=== PATIENT | female | born 2005 | race Caucasian/White ===

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

== ENCOUNTER 2025-02-14 23:00 | Emergency (ER) | payer BC, SELFPAY ==
--- OUTSIDE RECORDS SUMMARY | 2025-02-14 23:02 | XMS_ITS | Clinical Summary ---
Author Organization [facility] Address [address] [place] [address] Care Team Providers Care Switchboard Troubleshooter Name Role Phone No Ref-Primary, Physician Unavailable [phone] No Ref-Primary, Physician Primary Care Provider Allergies No known active allergies Medications No known medications Active Problems No known active problems Social History Tobacco Use Types Packs/Day Years Used Date Smoking Tobacco: Never Smokeless Tobacco: Never Tobacco Cessation:Counseling Given: No PHQ-2 Answer Date Recorded PHQ-2 Score 0 09/19/2018 Comments Unknown Sex and Gender Information Value Date Recorded Sex Assigned at Not on file Legal Sex Female 4:02 PM TRAFFIC CLERK Gender Identity Not on file Sexual Orientation Not on file Last Filed Vital Signs Vital Sign Reading Time Taken Comments Blood Pressure - - Pulse - - Temperature - - Respiratory Rate - - Oxygen Saturation - - Inhaled Oxygen Concentration - - Weight 49.4 kg (109 lb) 10/18/2018 10:12 AM TRAFFIC CLERK Height 171 cm (5' 7.32) 10/18/2018 10:12 AM TRAFFIC CLERK Body Mass Index 16.91 10/18/2018 10:12 AM TRAFFIC CLERK Plan of Treatment Not on file [facility] [place] [facility] Care Teams Switchboard Troubleshooter Relationship Specialty Start Date End Date No Ref-Primary, Physician PCP - General 10/08/18 No Ref-Primary, Physician 10/08/18
--- OUTSIDE RECORDS SUMMARY | 2025-02-14 23:02 | XMS_ITS | Clinical Summary ---
Author Organization [facility] Address [address] [place] [address] Care Team Providers Care Septic Tank Cleaner Name Role Phone Kathe Hagan MD Primary Care Provi robel Allergies Active Allergy Reactions Criticality Noted Date Comments Latex Rash 04/12/2018 Noted with rubber bands with her braces Nickel Rash 04/12/2018 Raspberry Other - Describe In Comment Field 06/03/2014 Tongue was tingling Medications cetirizine (ZyrTEC) 10 mg tablet Take 1 Tablet (10 mg) by mouth once daily. 0 04/13/2022 Active albuterol HFA (PRO-AIR; VENTOLIN; PROVENTIL) 90 mcg/actuation inhalerIndicatio ns:Wheeze Inhale 2 Puffs by mouth every 4 hours if needed 1 Each 1 05/30/2022 Active drospirenone, contraceptive, 4 mg (28) tabIndications:I rregular menses Take 4 mg by mouth once daily. 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 Patellofemoral pain syndrome 03/11/2015 Encounters Date Type Department Care Team Description 01/16/2025 Telephone [facility] [address] [place] [address] Marnie Fierro MD Letter from Last 3 Months Immunizations Immunization Administration Dates Next Due AMB Influenza, IIV4 PF (=>6 mos Flulaval,Fluzone Fluarix)(Flu Clinic Only) 06/22/2017 COVID-19 vaccine (YumDots NTech 30mcg/0.3mL) PF, MDV 01/08/2021,12/18/2020 DTaP 06/04/2008,08/31/2005 IPrA-ZrqE-MJY (Pediarix) 2004,2004,1 10/02/2003 HIB PRP-OMP (PedvaxHIB) 08/31/2005,2004, Hepatitis A (Peds) 07/02/2007,06/09/2006 Inactivated Polio Vaccine 06/05/2009 Influenza A (H1N1), Inactiva mykel (Age >=3 Years) 08/21/2009,07/22/2009 Influenza, IIV3 (Age 6-35 mos) 06/09/2006 Influenza, IIV3 (Age >=3 years) 06/05/20 09,06/04/2008,06/05/2007,08/18,07/19/2005 Influenza, IIV4 09/06/2023,,06/08/2021,06/01,06/07/2019,06/22/2018,06/10/2016 ,06/03/2014 Influenza,LAIV4 Live Intrana austin (Flumist) 06/12/2015,06/10/2013,06/04/2012,06/03,06/01/2010 MENINGOCOCCAL VACCINE 2 VIAL [id number]-55YO (MENVEO) 06/01/2020,06/10/2016 MMR 06/04/2008,2005 Meningococcal B 04/20/2023,03/21/2023 Pneumococcal conj 7-Valent (Prevnar 7) 1 2004,2004,2004,08/02 Tdap 06/10/2016 Varicella Vaccine 06/05/2009,2005 Family History Medical History Relation Name Comments Good Health Father Other Father as a child had wheat and dairy intolerance - grew out of Hyperlipidemia Maternal Grandfather Hyperlipidemia Maternal Grandmother Good Health Mother Diabetes Paternal Aunt Hyperlipidemia Paternal Grandfather Heart Disease Paternal Grandmother valve problem Hyperlipidemia Paternal Grandmother Anesthesia Problem No Family History Blood Disease No Family History Cancer-breast No Family History Cancer-colon No Family History Relation Name Status Comments Father Maternal Grandfather Maternal Grandmother Mother Paternal Aunt Paternal Grandfather Paternal Grandmother Social History Tobacco Use Types Packs/Day Years Used Date Smoking Tobacco: Never Smokeless Tobacco: Never Tobacco Cessation:Counseling Given: No Comments:no exposure Alcohol Use Standard Drinks/Week Comments Never 0 (1 standard drink = 0.6 oz pur e alcohol) PHQ-2 Answer Date Recorded PHQ-2 TOTAL SCORE 1 03/21/2023 Social Connections Answer Date Recorded Frequency of Communication with Friends and Fami ly Not on file 03/21/2024 Financial Resource Strain Answer Date R ecorded Difficulty of Paying Living Expenses 3 03/21/2023 Difficulty of Paying Living Expenses Not on file 03/21/2023 Food Insecurity Answer Date Recorded Worried About Running Out of Food in the Last Ye ar 1 03/21/2023 Transportation Needs Answer Date Record ed Lack of Transportation (Medical) 1 03/21/2023 Housing Stability Answer Date Recorded Unable to Pay for Housing in the Last Year 1 03/21/2023 Comments No Sex and Gender Information Value Date Recorded Sex Assigned at Not on file Legal Sex Female 7:06 AM DIVISION HUMAN RESOURCES MANAGER Gender Identity Not on file Sexual Orientation Not on file Obstetrics History Para Term AB IAB SAB Ectopic Multiple Livin g Live Births 0 0 0 0 0 0 0 0 0 0 0 Last Filed Vital Signs Vital Sign Reading Time Taken Comments Blood Pressure 110/75 02/09/2024 1:42 PM CDT Pulse 81 02/09/2024 1:42 PM CDT Temperature 36.7 C (98 F) 06/22/2022 4:07 PM CDT Respiratory Rate 18 04/12/2018 11:18 AM CDT Oxygen Saturation 100% 02/09/2024 1:42 PM CDT Inhaled Oxygen Concentration - - Weight 60.1 kg (132 lb 9.6 oz) 02/09/2024 1:42 P M CDT Height 173.7 cm (5' 8.39) 03/21/2023 9:08 AM CD T Body Mass Index - - Plan of Treatment Upcoming Encounters Date Type Department Care Team (Late st Contact Info) Description 02/17/2025 10:15 AM CDT Office Visit [facility] [address] [place] [address] Kathe Hagan MD [address] [place] [address] Health Maintenance Due Date Last Done Comments HIV for age 15-65 2019 HPV series for age 9-26 (1 - 3-dose series) 2019 Hepatitis C screening for age 18-79 2022 BMI (ht and wt on same day) for age 18+ 03/21/2024 03/21/2023 Depression screening for age 12+ 03/21/2024 03/21/2023, 05/30/2022, 06/08/2021, Additional history exists Well Child Check for age 3-20 03/21/2024 03/21/2023, 05/30/2022, 06/08/2021, Additional history exists COVID-19 vaccine series (2023- season) 2024 09/06/2023, 07/23/2022, 08/26/2021, Additional history exists Influenza Vaccine (Season Ended) 2025 09/06/2023, 05/30/2022, 06/08/2021, Additional history exists Tetanus booster 06/10/2026 06/10/2016 Hepatitis B series for 19+ Completed 11/30, 2004, 2004 Pneumococcal series for age 6-49 Aged Out 08/31/2005, 2004, 2004, Additional history exists No longer eligible based on patient's age to complete this topic Tdap Completed 06/10/2016 Meningococcal series for age 11-21 Completed 06/01/2020, 06/10/2016 Insurance [facility] Care Teams Septic Tank Cleaner Relationship Specialty Start Date End Date Kathe Hagan MD [address] [place] [address] PCP - General 06/04/08
[2025-02-14 23:15] VITALS: BP 126/91; PULSE 102; RESP 16; TEMP 37.4; O2SAT 98; BMI 19.8
--- NOTE | 2025-02-14 23:21 | ED_ITS ---
HPI - General Adult General Chief complaint: Unspecified Complaint, Adult Stated complaint: dizzy, vision problems, stutter Time Seen by Provider: 02/14/25 23:11 History of Present Illness HPI narrative: Patient c/o episodes of tremors, increased blinking, vision lagging or clouding over, JUSTICE, hearing changes , and stuttering x one week after returning from college. Patient states her college [employer] increased her bupropion dosage to 300mg from 150mg three weeks ago . Patient also has h/o migraines. Patient denies drug/alcohol use. Patient denies recent illness, fever, injuries. 19-year-old young woman presenting to the emergency department with concern of shakes and blinking and fuzzy vision some headache and hearing pulsatile noises in both ears. Has also been stuttering a little bit. Symptoms have continued to escalate. Has also been little dizzy most recently here on the way to the ER had to hold on to dad a little bit. No noted head injury. Does however have a history of migraines. No substances. No fevers or cough or cold symptoms recently. 3 weeks ago bupropion dosing was doubled to 300 mg XR daily. She does otherwise take fluoxetine longer-term. No seizure history. Related Data Home Medications ?Medication ?Instructions ?Recorded ?Confirmed albuterol 90 mcg/actuation aerosol 90 mcg inhalation P RN 06/16/22 inhaler cetirizine 10 mg capsule (All Day 10 mg PO DAILY PRN 1 06/20/22 Allergy (cetirizine)) minocycline 100 mg capsule 100 mg PO BID 06/16/2206/04 Allergies Allergy/AdvReac Type Severity Reaction Status Date / Time latex Allergy Swelling Verified 06/20/22 06:11 nickel Allergy Verified 06/20/22 06:11 raspberry Allergy Verified 06/20/22 06:11 Review of Systems Status of ROS: Reports: 6 or more systems reviewed and unremarkable except as noted in History and below [facility] Medical History Bunion of left foot ?M21.612 - Bunion of left foot (ICD-10) Central auditory processing disorder ?H93.25 - Central auditory processing disorder (ICD-10) Conductive hearing loss in right ear ?H90.11 - Conductive hearing loss, unilateral, right ear, with unrestricted hearing on the contralateral side (ICD-10) Patellofemoral pain syndrome ?M22.2X9 - Patellofemoral disorders, unspecified knee (ICD-10) Patellar instability of left knee ?M25.362 - Other instability, left knee (ICD-10) Surgical History History of bunionectomy of right great toe ?Z98.890 - Other specified postprocedural states (ICD-10) Social History Smoking Status: Never smoker Do you use any of these nicotine containing products: None Second hand tobacco smoke exposure: No How often do you have a drink containing alcohol: never AUDIT-C Alcohol total score: 0 Non-prescribed substance use: denies use Caffeine: No Exam Narrative: Exam Narrative: Pleasant. Calm. Observed to be ambulating steadied by father on the way into the emergency department. Intermittently flinching left side of her face or blinking. Speaking fluidly though there have been a couple of moments where hesitated over the words. Cranial nerves 2-12 otherwise look to be intact. Pupils are equal and briskly reactive. Right TM is occluded by soft cerumen; left TM is clear. Lungs are clear. Moving all extremities without difficulty though there is a slight tremor to both hands. Dhaus-pn-[id number] is accurate. Good strength throughout. Const: Vital Signs, click to edit/add: Vital Signs - 24 hr 02/14/25 23:15 Temperature 99.4 F Pulse Rate [Left P ulse Oximeter] 102 H Respiratory Rate 16 Blood Pressure [Ri ght Upper Arm] 126/91 H Pulse Oximetry 98 Documenting provider has reviewed patient's vital signs: yes Course Vital Signs Vital signs: Initial Vital Signs Temperature 99.4 F 02/14/25 23:15 Temperature Source Temporal Artery Scan 02/14/25 23:15 Pulse Rate 102 H 02/14/25 23:15 Respiratory Rate 16 02/14/25 23:15 Blood Pressure 126/91 H 02/14/25 23:15 Blood Pressure Mean 102 02/14/25 23:15 Blood Pressure Position Semi-Fowlers 02/14/25 23:15 Pulse Oximetry 98 02/14/25 23:15 Vital Signs Temperature 99.4 F 02/14/25 23:15 Pulse Rate 102 H 02/14/25 23:15 Respiratory Rate 16 02/14/25 23:15 Blood Pressure 126/91 H 02/14/25 23:15 Pulse Oximetry 98 02/14/25 23:15 Temperature 99.4 F 02/14/25 23:15 Pulse Rate 102 H 02/14/25 23:15 Respiratory Rate 16 02/14/25 23:15 Blood Pressure 126/91 H 02/14/25 23:15 Pulse Oximetry 98 02/14/25 23:15 Medical Decision Making MDM Narrative Medical decision making narrative: Does not have pain I would expect with trigeminal neuralgia. Global symptoms suggest more of a neurological disorder possible medication effect, maybe electrolyte abnormality. This seems beyond migraine effect and does not appear to be stroke-like. I think I would blame these symptoms on bupropion as they are also suspecting. With this in mind would also be prudent to check electrolytes. Sometimes hyponatremia could be caused by this bupropion. I do not think head imaging would be particularly useful here. Maybe thyroid screening. Monitored without further event in the emergency department. Labs are reassuring. TSH pending. I would treat symptoms as needed with benzodiazepine at this point. See patient discharge plan for further discussion I agree with you that it is most likely Wellbutrin contributing to the constellation of symptoms you are experiencing. I would return to the 150 mg dosing until follow-up with your primary on Monday as scheduled. For symptom relief in the meantime I am prescribing some lorazepam from [facility]. Would consider taking 1 or 2 tabs yet this evening. Return for new and focal weakness, severe headache, repeated vomiting. Medical Records Medical records reviewed: Yes I reviewed the patient's medical records Lab Data Lab results reviewed: Yes I reviewed the patient's lab results Labs: Lab Results 02/14/25 Range/Units 23:42 WBC 3.55 L (4.50-11.00) K/uL RBC 4.70 (4.00-5.20) m/uL Hgb 13.5 (12.0-16.0) gm/dL Hct 42.1 (33.0-51.0) % MCV 90 (80-100) fL MCH 29 (26-34) pg MCHC 32 (32-36) gm/dL RDW Coeff of Henrik 12.4 (11.5-15.5) % Plt Count 190 (140-440) K/uL Neut % (Auto) 72.1 H (42.0-72.0) % Lymph % (Auto) 14.6 L (20-44) % [place] % (Auto) 12.7 H (0.0-11.0) % Eos % (Auto) 0.0 (0.0-7.0) % Baso % (Auto) 0.6 (0.0-3.0) % Neut # (Auto) 2.60 (1.7-7.0) K/uL Lymph # (Auto) 0.50 L (0.90-2.90) K/uL [place] # (Auto) 0.50 (0.00-0.90) K/UL Eos # (Auto) 0.00 (0.00-0.50) K/uL Baso # (Auto) 0.00 (0.00-0.30) K/uL Abs Immat Gran (auto) 0.00 (0.00-0.30) K/uL Imm/Tot Granulo (auto) 0.0 % Sodium 139 (135-149) mmol/L Potassium 4.2 (3.6-5.1) mmol/L Chloride 106 (96-114) mmol/L Carbon Dioxide 21 (20-32) mmol/L Anion Gap 12 (7-15) mEq/L BUN 16 (5-24) mg/dL Creatinine 1.0 (0.5-1.5) mg/dL Estimated Creat Clear 83.54 Estimated GFR 83 ml/min Glucose 90 (60-115) mg/dL Calcium 9.2 (8.4-10.6) mg/dL Total Bilirubin 0.6 (0.1-1.5) mg/dL Direct Bilirubin 0.1 (0.0-0.5) mg/dL AST 29 (12-35) U/L ALT 25 (4-35) U/L Alkaline Phosphatase 77 (40-150) U/L Total Protein 7.8 (6.0-8.3) g/dL Albumin 4.8 (3.3-5.0) g/dL TSH 2.200 (0.270-4.20) uIU/mL Discharge Plan Discharge Clinical Impression: Medication side effects Patient Disposition: Home w/ Parent or Adult Condition: Stable Additional Instructions: I agree with you that it is most likely Wellbutrin contributing to the constellation of symptoms you are experiencing. I would return to the 150 mg dosing until follow-up with your primary on Monday as scheduled. For symptom relief in the meantime I am prescribing some lorazepam from [facility]. Would consider taking 1 or 2 tabs yet this evening. Return for new and focal weakness, severe headache, repeated vomiting. Prescriptions: No Action albuterol 90 mcg/actuation aerosol 90 mcg inhalation PRN All Day Allergy (cetirizine) 10 mg capsule 10 mg PO DAILY PRN minocycline 100 mg capsule 100 mg PO BID Follow Up/Referrals: Kathe Hagan MD [Primary Care Provider, Pediatrics] Stand Alone Forms: [employer] Info Instructions
[2025-02-14 23:51] LABS: Basophils Percent Auto 0.6 % (0.0-3.0); Hematocrit 42.1 % (33.0-51.0); Hemoglobin* 13.5 gm/dL (12.0-16.0); Lymphocytes Percent Auto 14.6 % (20-44); Mean Corpuscular HGB Conc 32 gm/dL (32-36); Mean Corpuscular Hemoglobin 29 pg (26-34); Mean Corpuscular Volume 90 fL (80-100); Monocytes Percent Auto 12.7 % (0.0-11.0); Neutrophils Percent Auto 72.1 % (42.0-72.0); Platelet Count* 190 K/uL (140-440); RDW Coefficient of Variation % 12.4 % (11.5-15.5); Slide Review Reflex No; White Blood Count* 3.55 K/uL (4.50-11.00)
[2025-02-15 00:03] LABS: Albumin* 4.8 g/dL (3.3-5.0); Chloride* 106 mmol/L (96-114); Potassium* 4.2 mmol/L (3.6-5.1); Sodium* 139 mmol/L (135-149)
[2025-02-15 00:05] LABS: Anion Gap 12 mEq/L (7-15); Blood Urea Nitrogen* 16 mg/dL (5-24); Carbon Dioxide* 21 mmol/L (20-32); Est. Creatinine Clearance* 83.54; Estimated Glomerular Filt Rate 83 ml/min
[2025-02-15 00:06] LABS: Alanine Aminotransferase* 25 U/L (4-35); Alkaline Phosphatase* 77 U/L (40-150); Aspartate Amino Transferase* 29 U/L (12-35); Bilirubin Direct* 0.1 mg/dL (0.0-0.5); Bilirubin Total* 0.6 mg/dL (0.1-1.5); Calcium* 9.2 mg/dL (8.4-10.6); Glucose* 90 mg/dL (60-115); Total Protein* 7.8 g/dL (6.0-8.3)
--- OUTSIDE RECORDS SUMMARY | 2025-02-15 00:13 | XMS_ITS | Clinical Summary ---
Author Organization [facility] Address [address] [place] [address] Care Team Providers Care Doughmaker Name Role Phone No Ref-Primary, Physician Unavailable [phone] No Ref-Primary, Physician Primary Care Provider Allergies [...] on file Legal Sex Female 4:02 PM SENIOR CONSUMER INSIGHTS CONSULTANT Gender Identity Not on file Sexual Orientation Not on file Last Filed Vital Signs Vital Sign Reading Time Taken Comments Blood Pressure - - Pulse - - Temperature - - Respiratory Rate - - Oxygen Saturation - - Inhaled Oxygen Concentration - - Weight 49.4 kg (109 lb) 10/18/2018 10:12 AM SENIOR CONSUMER INSIGHTS CONSULTANT Height 171 cm (5' 7.32) 10/18/2018 10:12 AM SENIOR CONSUMER INSIGHTS CONSULTANT Body Mass Index 16.91 10/18/2018 10:12 AM SENIOR CONSUMER INSIGHTS CONSULTANT Plan of Treatment Not on file [facility] [place] [facility] Care Teams Doughmaker Relationship Specialty Start Date End Date No Ref-Primary, Physician PCP - General 10/08/18 No Ref-Primary, Physician 10/08/18
== END 2025-02-15 00:56 | disposition home or self-care (01) ==
PROVIDERS: Emergency Provider Family Medicine; PCP Pediatrics
DX: R42 Dizziness and giddiness (principal); T43.295A Adverse effect of other antidepressants, initial encounter
CPT/HCPCS: 36415; 80048; 80076; 84443; 85025; 99283; 99284